=== PATIENT | male | born 1995 | race Caucasian/White ===

== ENCOUNTER 2022-06-05 07:26 | Emergency (ER) | payer SELFPAY ==
[~2022-06-05] VITALS: Ht 170.2 cm; Wt 65.9 kg
[~2022-06-05 07:26] MED LIST: NOCURR
[2022-06-05 07:30] VITALS: BP 142/85
== END 2022-06-05 07:39 | disposition left against medical advice (07) ==
LOC: EMS 07:26
DX: H92.02 Otalgia, left ear (principal); Z53.21 Procedure and treatment not carried out due to patient leaving prior to being seen by health care provider

== ENCOUNTER 2022-06-07 09:11 | Emergency (ER) | payer MEDICAID ==
[~2022-06-07] VITALS: Ht 170.2 cm; Wt 72.7 kg
[2022-06-07] MEDS ORDERED: ACETAMINOPHEN 500 MG TABLET PO ONE (10:30)
[2022-06-07 11:45] VITALS: BP 145/86
== END 2022-06-07 12:30 | disposition home or self-care (01) ==
LOC: EMS 09:14
DX: S43.101A Unspecified dislocation of right acromioclavicular joint, initial encounter (principal); F15.90 Other stimulant use, unspecified, uncomplicated; F12.90 Cannabis use, unspecified, uncomplicated; Z72.89 Other problems related to lifestyle; Z88.6 Allergy status to analgesic agent; V18.0XXA Pedal cycle driver injured in noncollision transport accident in nontraffic accident, initial encounter; Y93.55 Activity, bike riding; Y92.488 Other paved roadways as the place of occurrence of the external cause; Y99.8 Other external cause status
CPT/HCPCS: 99283

== ENCOUNTER 2023-09-27 15:04 | Emergency (ER) | payer MEDICAID | END 2023-09-27 15:25 | disposition left against medical advice (07) | LOC: EMS 15:09 | DX: Z53.21 Procedure and treatment not carried out due to patient leaving prior to being seen by health care provider (principal) ==

== ENCOUNTER 2023-09-28 01:41 | Emergency (ER) | payer MEDICAID ==
[~2023-09-28] VITALS: Ht 170.2 cm; Wt 95.9 kg
[2023-09-28 01:48] VITALS: BP 114/88; PULSE 129; RESP 20; TEMP 98.9
[2023-09-28] MEDS ORDERED: HALOPERIDOL LACTATE 5 MG/ML VIAL IM ONE (02:15)
[2023-09-28] MEDS ORDERED: LORazepam 2 MG/ML VIAL IM ONE (02:15)
== END 2023-09-28 03:55 | disposition left against medical advice (07) ==
LOC: EMS 01:41
DX: F41.9 Anxiety disorder, unspecified (principal); F15.10 Other stimulant abuse, uncomplicated; F20.9 Schizophrenia, unspecified; F17.210 Nicotine dependence, cigarettes, uncomplicated; F12.90 Cannabis use, unspecified, uncomplicated; Z88.6 Allergy status to analgesic agent
CPT/HCPCS: 99283; 93005; J1630; J2060

== ENCOUNTER 2023-09-30 20:48 | Emergency (ER) | payer MEDICAID | END 2023-09-30 20:55 | disposition home or self-care (01) | LOC: EMS 20:48 | DX: Z53.21 Procedure and treatment not carried out due to patient leaving prior to being seen by health care provider (principal) ==

== ENCOUNTER 2023-12-22 08:29 | Emergency (ER) | payer MEDICAID ==
[~2023-12-22] VITALS: Ht 172.7 cm; Wt 77.3 kg
[2023-12-22 08:35] VITALS: TEMP 99.3
[2023-12-22 08:49] LABS: BASOPHILS % (AUTO) 1.1 % (0.0-2.0); EOSINOPHILS % (AUTO) 1.1 % (1.0-6.0); HEMATOCRIT 45.3 % (41-53); HEMOGLOBIN 15.2 g/dL (13.5-17.5); LYMPHOCYTES # (AUTO) 2.1 K/uL (1.0-4.8); MEAN CORPUSCULAR HEMOGLOBIN 30.7 pg (26.0-34.0); MEAN CORPUSCULAR HGB CONC 33.6 G/dL (31.0-37.0); MEAN CORPUSCULAR VOLUME 91 fL (80-100); MONOCYTES # (AUTO) 0.4 K/uL (0.1-1.0); NEUTROPHILS # (AUTO) 4.5 K/uL (1.8-7.7); NEUTROPHILS % (AUTO) 62.8 % (40.0-70.0); PLATELET COUNT (AUTO) 265 K/uL (150-450); RED BLOOD CELL COUNT(AUTO) 4.96 MIL/uL (4.50-5.90); RED CELL DISTRIBUTION WIDTH 15.2 % (11.5-14.5); WHITE BLOOD COUNT (AUTO) 7.1 K/uL (4.5-11.0)
[2023-12-22 09:04] LABS: ANION GAP 9 mmol/L (8-16); CALCIUM, TOTAL 9.3 mg/dL (8.8-10.5); CARBON DIOXIDE 25 mmol/L (22-29); CHLORIDE 102 mmol/L (98-107); CREATININE 0.88 mg/dL (0.60-1.30); GLOMERULAR FILTR. RATE CALC > 60 mL/min (>60); GLUCOSE,RANDOM 111 mg/dL (70-110); SODIUM SERUM 136 mmol/L (136-145); UREA NITROGEN, BLOOD 18 mg/dL (7-18)
[2023-12-22 09:06] LABS: ALCOHOL, BLOOD (SERUM) < 3 mg/dL (0-10)
[2023-12-22 09:10] LABS: ALANINE AMINOTRANSFERASE 55 U/L (12-78); ALBUMIN 3.8 g/dL (3.4-5.0); ALKALINE PHOSPHATASE 57 U/L (46-116); ASPARTATE AMINOTRANSFERASE 28 U/L (15-37); BILIRUBIN,TOTAL 0.6 mg/dL (0.1-1.0); TOTAL PROTEIN, SERUM 7.7 g/dL (6.4-8.2)
[2023-12-22 09:12] LABS: COVID AG,FIA SOURCE NASAL SWAB
[2023-12-22 09:36] LABS: SARS-COV2 (COVID) ANTIGEN,FIA Negative (Negative)
[2023-12-22 10:50] LABS: ALCOHOL, URINE DRUG SCREEN NEGATIVE (NEGATIVE); AMPHET/METH SCREEN,URINE NEGATIVE (NEGATIVE); BARBITURATE SCREEN, URINE NEGATIVE (NEGATIVE); BENZODIAZEPINES SCREEN,URINE NEGATIVE (NEGATIVE); CANNABINOID SCREEN,URINE NEGATIVE (NEGATIVE); COCAINE SCREEN,URINE NEGATIVE (NEGATIVE); METHADONE SCREEN, URINE NEGATIVE (NEGATIVE); OPIATE SCREEN,URINE NEGATIVE (NEGATIVE); PHENCYCLIDINE SCREEN,URINE NEGATIVE (NEGATIVE)
[2023-12-22] MEDS: HALOPERIDOL 5 MG TABLET PO ONE (11:49)
[2023-12-22] MEDS: BENZTROPINE MESYLATE 2 MG TABLET PO ONE (11:49)
[2023-12-22] MEDS ORDERED: HALO5TAB23 PO (13:27)
[2023-12-22] MEDS ORDERED: BENZ1TAB84 PO (13:27)
[2023-12-22 13:30] VITALS: BP 113/72; PULSE 81; RESP 18
== END 2023-12-22 13:57 | disposition home or self-care (01) ==
LOC: EMS 08:29
DX: F20.0 Paranoid schizophrenia (principal); F41.9 Anxiety disorder, unspecified; F17.210 Nicotine dependence, cigarettes, uncomplicated; F12.90 Cannabis use, unspecified, uncomplicated; F15.90 Other stimulant use, unspecified, uncomplicated; Z88.8 Allergy status to other drugs, medicaments and biological substances; Z20.822 Contact with and (suspected) exposure to COVID-19
CPT/HCPCS: 99283; 87426; 80053; 85025; 36415; 80307; G0480

== ENCOUNTER 2023-12-22 16:36 | Emergency (ER) | payer MEDICAID ==
[~2023-12-22] VITALS: Ht 170.2 cm; Wt 72.7 kg
[~2023-12-22 16:36] MED LIST changes: +BENZ1TAB84 PO; +HALO5TAB23 PO; -NOCURR
[2023-12-22 16:41] VITALS: BP 111/67; PULSE 127; RESP 18; TEMP 98.6
== END 2023-12-22 19:00 | disposition left against medical advice (07) ==
LOC: EMS 16:53
DX: R07.9 Chest pain, unspecified (principal); F41.9 Anxiety disorder, unspecified; Z53.21 Procedure and treatment not carried out due to patient leaving prior to being seen by health care provider
CPT/HCPCS: 99281; Z7502

== ENCOUNTER 2024-01-24 12:35 | Inpatient (IN) | payer MEDICAID ==
[~2024-01-24] VITALS: Ht 167.6 cm; Wt 82.6 kg
[2024-01-24] MEDS: HALOPERIDOL 5 MG TABLET PO PRN (13:44)
[2024-01-24] MEDS: LORazepam 2 MG TABLET PO PRN (13:44)
[2024-01-24] MEDS ORDERED: ZOLPIDEM TARTRATE 10 MG TABLET PO PRN (13:45)
[2024-01-24 14:39] LABS: BASOPHILS % (AUTO) 0.5 % (0.0-2.0); EOSINOPHILS % (AUTO) 0.4 % (1.0-6.0); HEMATOCRIT 42.3 % (41-53); HEMOGLOBIN 14.6 g/dL (13.5-17.5); LYMPHOCYTES % (AUTO) 12.1 % (22.0-44.0); MEAN CORPUSCULAR HEMOGLOBIN 31.1 pg (26.0-34.0); MEAN CORPUSCULAR HGB CONC 34.6 G/dL (31.0-37.0); MEAN CORPUSCULAR VOLUME 90 fL (80-100); MONOCYTES # (AUTO) 0.3 K/uL (0.1-1.0); MONOCYTES % (AUTO) 3.8 % (2.0-9.0); NEUTROPHILS # (AUTO) 6.8 K/uL (1.8-7.7); NEUTROPHILS % (AUTO) 83.2 % (40.0-70.0); PLATELET COUNT (AUTO) 297 K/uL (150-450); RED CELL DISTRIBUTION WIDTH 13.8 % (11.5-14.5); WHITE BLOOD COUNT (AUTO) 8.2 K/uL (4.5-11.0)
[2024-01-24 14:47] LABS: ANION GAP 10 mmol/L (8-16); CALCIUM, TOTAL 8.8 mg/dL (8.8-10.5); CARBON DIOXIDE 28 mmol/L (22-29); CHLORIDE 100 mmol/L (98-107); CREATININE 0.94 mg/dL (0.60-1.30); GLOMERULAR FILTR. RATE CALC > 60 mL/min (>60); GLUCOSE,RANDOM 119 mg/dL (70-110); POTASSIUM 3.7 mmol/L (3.5-5.1); SODIUM SERUM 138 mmol/L (136-145); UREA NITROGEN, BLOOD 12 mg/dL (7-18)
[2024-01-24 14:52] LABS: ALCOHOL, BLOOD (SERUM) < 3 mg/dL (0-10)
[2024-01-24 14:53] LABS: ALANINE AMINOTRANSFERASE 25 U/L (12-78); ALBUMIN 3.6 g/dL (3.4-5.0); ALKALINE PHOSPHATASE 68 U/L (46-116); ASPARTATE AMINOTRANSFERASE 18 U/L (15-37); BILIRUBIN,TOTAL 0.7 mg/dL (0.1-1.0); TOTAL PROTEIN, SERUM 7.9 g/dL (6.4-8.2)
[2024-01-24 16:39] LABS: COVID AG,FIA SOURCE NASAL SWAB
[2024-01-24 17:06] LABS: SARS-COV2 (COVID) ANTIGEN,FIA Negative (Negative)
[2024-01-24 21:07] VITALS: BP 130/55; PULSE 98; RESP 18; TEMP 98.2; O2SAT 99
[2024-01-25] MEDS ORDERED: CloNIDine HCL 0.1 MG TABLET PO PRN (06:00)
[2024-01-25] MEDS ORDERED: BACITRACIN 28 GM OINTMENT TP PRN (06:00)
[2024-01-25] MEDS ORDERED: BENZOCAINE/MENTHOL LOZENGE PO PRN (06:00)
[2024-01-25] MEDS ORDERED: LOPERAMIDE HCL 2 MG CAPSULE PO PRN (06:00)
[2024-01-25] MEDS ORDERED: DOCUSATE SODIUM 100 MG CAPSULE PO PRN (06:00)
[2024-01-25] MEDS ORDERED: ONDANSETRON HCL 4 MG TABLET PO PRN (06:00)
[2024-01-25] MEDS ORDERED: MAGNESIUM HYDROXIDE SUSPENSION 30 ML UDCUP PO PRN (06:00)
[2024-01-25] MEDS ORDERED: ALBUTEROL SULFATE HFA 90 MCG/PUFF 8 GM INHALER IH PRN (06:00)
[2024-01-25] MEDS ORDERED: MAG HYDROX/ALUMINUM HYD/SIMETH ES 30 ML SUSPENSION UDCUP PO PRN (06:00)
[2024-01-25] MEDS ORDERED: OMEPRAZOLE 20 MG CAPSULE PO PRN (06:00)
[2024-01-25] MEDS ORDERED: PETROLATUM,WHITE 28 GM JELLY TP PRN (06:00)
[2024-01-25] MEDS ORDERED: ACETAMINOPHEN 325 MG TABLET PO PRN (06:00)
[2024-01-25 08:52] VITALS: BP 146/74; PULSE 62; RESP 18; TEMP 98; O2SAT 97
[2024-01-25 20:21] VITALS: BP 113/74; PULSE 99; RESP 17; TEMP 96.8; O2SAT 100
[2024-01-25] MEDS: HALOPERIDOL 10 MG TABLET PO SCH (21:17)
[2024-01-25] MEDS: BENZTROPINE MESYLATE 2 MG TABLET PO SCH (21:18)
[2024-01-26 08:28] VITALS: BP 115/68; PULSE 98; RESP 17; TEMP 97.6; O2SAT 98
[2024-01-26] MEDS: OLANZapine 7.5 MG TABLET PO SCH (20:15)
[2024-01-26 20:38] VITALS: BP 119/80; PULSE 87; TEMP 98; O2SAT 97
[2024-01-26] MEDS ORDERED: GuaiFENesin [SUGAR-FREE] 200 MG/10 ML SOLUTION UDCUP PO PRN (22:15)
[2024-01-27 08:36] VITALS: BP 124/76; PULSE 86; RESP 18; TEMP 98.7; O2SAT 100
[2024-01-27 21:11] VITALS: BP 117/75; PULSE 75; TEMP 97.9; O2SAT 98
[2024-01-28 08:18] VITALS: BP 128/75; PULSE 100; RESP 17; TEMP 97.6; O2SAT 97
[2024-01-28 20:28] VITALS: BP 119/77; PULSE 96; RESP 17; TEMP 97.5; O2SAT 96
[2024-01-29 08:28] VITALS: BP 121/76; PULSE 64; RESP 18; TEMP 98.6; O2SAT 97
[2024-01-29] MEDS ORDERED: OLANZapine 10 MG TABLET PO SCH (21:00)
[2024-01-29 21:18] VITALS: BP 110/64; PULSE 76; RESP 18; TEMP 98.4; O2SAT 98
[2024-01-29] MEDS: OLANZapine 10 MG TABLET PO SCH (21:37)
[2024-01-30 09:19] VITALS: BP 120/60; PULSE 90; RESP 17; TEMP 97.9; O2SAT 100
[2024-01-30 20:17] VITALS: BP 134/78; PULSE 91; RESP 18; TEMP 98.7; O2SAT 97
[2024-01-31 08:58] VITALS: BP 120/65; PULSE 70; RESP 17; TEMP 97.7; O2SAT 100
[2024-01-31 22:00] VITALS: BP 121/73; PULSE 87; RESP 18; TEMP 98.6; O2SAT 97
[2024-02-01 08:46] VITALS: BP 117/78; PULSE 74; RESP 17; TEMP 97.7; O2SAT 98
[2024-02-01 21:21] VITALS: BP 120/79; PULSE 91; RESP 17; TEMP 97.9; O2SAT 98
[2024-02-01] MEDS: OLANZapine 10 MG TABLET PO SCH (21:48)
[2024-02-02 08:58] VITALS: BP 130/70; PULSE 90; RESP 16; TEMP 97.9; O2SAT 100
[2024-02-02 20:24] VITALS: BP 118/68; PULSE 86; RESP 20; TEMP 98.1; O2SAT 97
[2024-02-03 09:57] VITALS: BP 128/82; PULSE 99; RESP 18; TEMP 97.7; O2SAT 98
[2024-02-03 21:57] VITALS: BP 141/90; PULSE 104; RESP 18; TEMP 98; O2SAT 94
[2024-02-04 09:08] VITALS: BP 119/67; PULSE 97; RESP 17; TEMP 98; O2SAT 98
[2024-02-04 20:18] VITALS: BP 131/81; PULSE 80; RESP 17; TEMP 97.6; O2SAT 97
[2024-02-05 08:22] VITALS: BP 116/63; PULSE 78; RESP 18; TEMP 97.8; O2SAT 97
[2024-02-05] MEDS ORDERED: OLAN10TA74 PO (11:19)
== END 2024-02-05 11:45 | disposition home or self-care (01) | DRG 750 ==
LOC: EMS 12:35 → B3A 17:42 → B2S 01-30 20:44
PROVIDERS: ADMIT Psychiatry & Neurology Psychiatry; ATTEND Psychiatry & Neurology Psychiatry
DX: F25.9 Schizoaffective disorder, unspecified (principal); R45.851 Suicidal ideations; Z91.148 Patient's other noncompliance with medication regimen for other reason; F41.9 Anxiety disorder, unspecified; G47.00 Insomnia, unspecified; Z20.822 Contact with and (suspected) exposure to COVID-19; F15.90 Other stimulant use, unspecified, uncomplicated; F10.90 Alcohol use, unspecified, uncomplicated; K59.00 Constipation, unspecified; K21.9 Gastro-esophageal reflux disease without esophagitis; Z88.6 Allergy status to analgesic agent; Z79.899 Other long term (current) drug therapy; Z87.891 Personal history of nicotine dependence
CPT/HCPCS: 80053; 85025; G0480

== ENCOUNTER 2024-02-05 18:57 | Emergency (ER) | payer MEDICAID ==
[~2024-02-05] VITALS: Ht 175.3 cm; Wt 81.0 kg
[~2024-02-05 18:57] MED LIST changes: +OLAN10TA74 PO
[2024-02-05] MEDS: LORazepam 2 MG TABLET PO ONE (20:32)
[2024-02-05] MEDS: OLANZapine 10 MG TABLET PO ONE (20:33)
[2024-02-05 21:18] VITALS: BP 141/77; PULSE 90; RESP 19; TEMP 97.6
== END 2024-02-05 21:28 | disposition home or self-care (01) ==
LOC: EMS 18:59
DX: F41.9 Anxiety disorder, unspecified (principal); F20.9 Schizophrenia, unspecified; F17.210 Nicotine dependence, cigarettes, uncomplicated; F12.90 Cannabis use, unspecified, uncomplicated; F15.90 Other stimulant use, unspecified, uncomplicated; Z88.6 Allergy status to analgesic agent
CPT/HCPCS: 99283

== ENCOUNTER 2024-04-05 23:47 | Emergency (ER) | payer MEDICAID, OTHER ==
[~2024-04-05] VITALS: Ht 170.2 cm; Wt 72.7 kg
[~2024-04-05 23:47] MED LIST changes: -BENZ1TAB84 PO; -HALO5TAB23 PO
[2024-04-05 23:53] VITALS: TEMP 98.4
[2024-04-06] MEDS: OLANZapine 10 MG TABLET PO ONE (00:19)
[2024-04-06] MEDS: LORazepam 1 MG TABLET PO ONE (00:19)
[2024-04-06 00:21] LABS: BASOPHILS % (AUTO) 0.6 % (0.0-2.0); EOSINOPHILS % (AUTO) 0.1 % (1.0-6.0); HEMOGLOBIN 14.9 g/dL (13.5-17.5); LYMPHOCYTES % (AUTO) 23.6 % (22.0-44.0); MEAN CORPUSCULAR HEMOGLOBIN 30.8 pg (26.0-34.0); MEAN CORPUSCULAR VOLUME 91 fL (80-100); MONOCYTES # (AUTO) 0.5 K/uL (0.1-1.0); MONOCYTES % (AUTO) 5.8 % (2.0-9.0); NEUTROPHILS # (AUTO) 6.1 K/uL (1.8-7.7); NEUTROPHILS % (AUTO) 69.9 % (40.0-70.0); PLATELET COUNT (AUTO) 327 K/uL (150-450); RED BLOOD CELL COUNT(AUTO) 4.85 MIL/uL (4.50-5.90); RED CELL DISTRIBUTION WIDTH 14.2 % (11.5-14.5); WHITE BLOOD COUNT (AUTO) 8.7 K/uL (4.5-11.0)
[2024-04-06 00:29] LABS: ANION GAP 10 mmol/L (8-16); CALCIUM, TOTAL 9.9 mg/dL (8.8-10.5); CARBON DIOXIDE 28 mmol/L (22-29); CHLORIDE 103 mmol/L (98-107); CREATININE 1.14 mg/dL (0.60-1.30); GLOMERULAR FILTR. RATE CALC > 60 mL/min (>60); GLUCOSE,RANDOM 105 mg/dL (70-110); POTASSIUM 3.9 mmol/L (3.5-5.1); SODIUM SERUM 141 mmol/L (136-145); UREA NITROGEN, BLOOD 16 mg/dL (7-18)
[2024-04-06 00:34] LABS: ALANINE AMINOTRANSFERASE 32 U/L (12-78); ALBUMIN 4.2 g/dL (3.4-5.0); ALKALINE PHOSPHATASE 66 U/L (46-116); ASPARTATE AMINOTRANSFERASE 17 U/L (15-37); BILIRUBIN,TOTAL 0.8 mg/dL (0.1-1.0); TOTAL PROTEIN, SERUM 8.2 g/dL (6.4-8.2)
[2024-04-06 00:35] LABS: TROPONIN I-HIGH SENSITIVITY Less Than 4 ng/L (<76)
[2024-04-06 01:59] LABS: PH,URINE DRUG SCREEN 6.5 (5.0-8.0)
[2024-04-06 02:02] LABS: ALCOHOL, URINE DRUG SCREEN NEGATIVE (NEGATIVE); AMPHET/METH SCREEN,URINE POSITIVE (NEGATIVE); BARBITURATE SCREEN, URINE NEGATIVE (NEGATIVE); BENZODIAZEPINES SCREEN,URINE NEGATIVE (NEGATIVE); CANNABINOID SCREEN,URINE NEGATIVE (NEGATIVE); COCAINE SCREEN,URINE NEGATIVE (NEGATIVE); METHADONE SCREEN, URINE NEGATIVE (NEGATIVE); OPIATE SCREEN,URINE NEGATIVE (NEGATIVE); PHENCYCLIDINE SCREEN,URINE NEGATIVE (NEGATIVE)
[2024-04-06 03:22] VITALS: BP 128/79; PULSE 88; RESP 20
== END 2024-04-06 03:40 | disposition home or self-care (01) ==
LOC: EMS 23:47
DX: F15.10 Other stimulant abuse, uncomplicated (principal); F41.9 Anxiety disorder, unspecified; F20.9 Schizophrenia, unspecified; F17.210 Nicotine dependence, cigarettes, uncomplicated
CPT/HCPCS: 99285; 71045; 80053; 84484; 85025; 36415; 93005; 80307; G0480

== ENCOUNTER 2024-04-07 08:16 | Emergency (ER) | payer OTHER ==
[~2024-04-07] VITALS: Ht 172.7 cm; Wt 79.5 kg
[2024-04-07 08:24] VITALS: BP 124/67; PULSE 100; RESP 18; TEMP 98.7
[2024-04-07 09:04] LABS: BASOPHILS % (AUTO) 0.7 % (0.0-2.0); EOSINOPHILS % (AUTO) 0.2 % (1.0-6.0); HEMATOCRIT 44.9 % (41-53); LYMPHOCYTES # (AUTO) 1.8 K/uL (1.0-4.8); LYMPHOCYTES % (AUTO) 24.3 % (22.0-44.0); MEAN CORPUSCULAR HEMOGLOBIN 30.7 pg (26.0-34.0); MEAN CORPUSCULAR HGB CONC 33.5 G/dL (31.0-37.0); MEAN CORPUSCULAR VOLUME 92 fL (80-100); MONOCYTES # (AUTO) 0.3 K/uL (0.1-1.0); MONOCYTES % (AUTO) 4.3 % (2.0-9.0); NEUTROPHILS # (AUTO) 5.3 K/uL (1.8-7.7); NEUTROPHILS % (AUTO) 70.5 % (40.0-70.0); PLATELET COUNT (AUTO) 293 K/uL (150-450); RED BLOOD CELL COUNT(AUTO) 4.91 MIL/uL (4.50-5.90); RED CELL DISTRIBUTION WIDTH 14.4 % (11.5-14.5); WHITE BLOOD COUNT (AUTO) 7.6 K/uL (4.5-11.0)
[2024-04-07] MEDS: OLANZapine 5 MG TABLET PO ONE (09:08)
[2024-04-07 09:13] LABS: ALCOHOL, BLOOD (SERUM) < 3 mg/dL (0-10)
[2024-04-07 09:17] LABS: ANION GAP 10 mmol/L (8-16); CALCIUM, TOTAL 9.5 mg/dL (8.8-10.5); CARBON DIOXIDE 25 mmol/L (22-29); CHLORIDE 101 mmol/L (98-107); CREATININE 1.13 mg/dL (0.60-1.30); GLOMERULAR FILTR. RATE CALC > 60 mL/min (>60); GLUCOSE,RANDOM 132 mg/dL (70-110); POTASSIUM 4.7 mmol/L (3.5-5.1); SODIUM SERUM 136 mmol/L (136-145); UREA NITROGEN, BLOOD 15 mg/dL (7-18)
== END 2024-04-07 10:02 | disposition home or self-care (01) ==
LOC: EMS 08:16
DX: F20.9 Schizophrenia, unspecified (principal); F41.9 Anxiety disorder, unspecified; F17.210 Nicotine dependence, cigarettes, uncomplicated; F12.90 Cannabis use, unspecified, uncomplicated; F15.10 Other stimulant abuse, uncomplicated; Z88.6 Allergy status to analgesic agent
CPT/HCPCS: 99284; 80048; 85025; 36415; G0480

== ENCOUNTER 2024-05-30 08:58 | Inpatient (IN) | payer MEDICAID, OTHER ==
[~2024-05-30] VITALS: Ht 170.2 cm; Wt 82.6 kg
[2024-05-30 09:47] LABS: COVID AG,FIA SOURCE NASAL SWAB
[2024-05-30 09:59] LABS: BASOPHILS % (AUTO) 0.7 % (0.0-2.0); EOSINOPHILS % (AUTO) 0 % (1.0-6.0); HEMOGLOBIN 15.1 g/dL (13.5-17.5); LYMPHOCYTES # (AUTO) 1.9 K/uL (1.0-4.8); LYMPHOCYTES % (AUTO) 32.6 % (22.0-44.0); MEAN CORPUSCULAR HEMOGLOBIN 30.7 pg (26.0-34.0); MEAN CORPUSCULAR HGB CONC 33.7 G/dL (31.0-37.0); MEAN CORPUSCULAR VOLUME 91 fL (80-100); MONOCYTES # (AUTO) 0.3 K/uL (0.1-1.0); MONOCYTES % (AUTO) 5.3 % (2.0-9.0); NEUTROPHILS # (AUTO) 3.6 K/uL (1.8-7.7); NEUTROPHILS % (AUTO) 61.4 % (40.0-70.0); PLATELET COUNT (AUTO) 269 K/uL (150-450); RED BLOOD CELL COUNT(AUTO) 4.94 MIL/uL (4.50-5.90); RED CELL DISTRIBUTION WIDTH 13.9 % (11.5-14.5); WHITE BLOOD COUNT (AUTO) 5.8 K/uL (4.5-11.0)
[2024-05-30 10:03] LABS: ANION GAP 12 mmol/L (8-16); CALCIUM, TOTAL 9.1 mg/dL (8.8-10.5); CARBON DIOXIDE 24 mmol/L (22-29); CHLORIDE 99 mmol/L (98-107); CREATININE 1.17 mg/dL (0.60-1.30); GLOMERULAR FILTR. RATE CALC > 60 mL/min (>60); GLUCOSE,RANDOM 105 mg/dL (70-110); POTASSIUM 4.4 mmol/L (3.5-5.1); SODIUM SERUM 135 mmol/L (136-145); UREA NITROGEN, BLOOD 14 mg/dL (7-18)
[2024-05-30 10:09] LABS: ALCOHOL, BLOOD (SERUM) < 3 mg/dL (0-10)
[2024-05-30 10:10] LABS: ALANINE AMINOTRANSFERASE 38 U/L (12-78); ALBUMIN 3.9 g/dL (3.4-5.0); ALKALINE PHOSPHATASE 61 U/L (46-116); ASPARTATE AMINOTRANSFERASE 18 U/L (15-37); BILIRUBIN,TOTAL 0.9 mg/dL (0.1-1.0); TOTAL PROTEIN, SERUM 7.9 g/dL (6.4-8.2)
[2024-05-30 10:14] LABS: SARS-COV2 (COVID) ANTIGEN,FIA Negative (Negative)
[2024-05-30] MEDS: LORazepam 1 MG TABLET PO ONE (13:03)
[2024-05-30] MEDS: HALOPERIDOL 5 MG TABLET PO ONE (13:03)
[2024-05-30 15:30] VITALS: O2SAT 98
[2024-05-30 17:00] VITALS: BP 118/67; PULSE 78; RESP 18; TEMP 98; O2SAT 98
[2024-05-30] MEDS ORDERED: ACETAMINOPHEN 325 MG TABLET PO PRN (17:30)
[2024-05-30] MEDS ORDERED: HydrOXYzine PAMOATE 50 MG CAPSULE PO PRN (17:30)
[2024-05-30] MEDS ORDERED: GuaiFENesin/D-METHORPHAN [SUGAR-FREE] 200-20MG/10 ML SYRUP UDCUP PO PRN (17:30)
[2024-05-30] MEDS ORDERED: MAG HYDROX/ALUMINUM HYD/SIMETH ES 30 ML SUSPENSION UDCUP PO PRN (17:30)
[2024-05-30] MEDS ORDERED: MAGNESIUM HYDROXIDE SUSPENSION 30 ML UDCUP PO PRN (17:30)
[2024-05-30] MEDS ORDERED: TUBERCULIN, PURIFIED PROTEIN DERIVATIVE 5 TU/0.1 ML SYRINGE ID ONE (17:30)
[2024-05-30] MEDS ORDERED: PROMETHAZINE HCL 25 MG TABLET PO PRN (17:30)
[2024-05-30] MEDS ORDERED: LOPERAMIDE HCL 2 MG CAPSULE PO PRN (17:30)
[2024-05-30 20:20] VITALS: BP 116/70; PULSE 78; RESP 18; TEMP 98.1; O2SAT 98
[2024-05-30] MEDS: OLANZapine 5 MG RAPDIS TABLET PO SCH (21:05)
[2024-05-30] MEDS: MELATONIN 5 MG TABLET PO SCH (21:05)
[2024-05-31 08:02] LABS: HEMOGLOBIN A1C 5.5 % (3.8-5.6)
[2024-05-31 08:12] LABS: CHOL/HDL RATIO 3.4 (4.2-7.3); FREE T4 (FREE THYROXINE) 1.06 ng/dL (0.76-1.46); THYROID STIMULATING HORMONE 0.39 uIU/mL (0.36-3.74)
[2024-05-31 10:04] VITALS: BP 121/64; PULSE 92; RESP 18; TEMP 98.1; O2SAT 100
[2024-05-31] MEDS: NALTREXONE HCL 50 MG TABLET PO SCH (11:23)
[2024-05-31] MEDS: MULTIVITAMINS WITH MINERALS, THERAPEUTIC TABLET PO SCH (11:24)
[2024-05-31] MEDS: FOLIC ACID 1 MG TABLET PO SCH (11:24)
[2024-05-31] MEDS: THIAMINE 100 MG TABLET PO SCH (11:24)
[2024-05-31] MEDS: BuPROPion HCL XL 150 MG ER TABLET PO SCH (11:24)
[2024-05-31] MEDS: OMEGA-3/DHA/EPA/FISH OIL 1,000 MG CAPSULE PO SCH (11:24)
[2024-05-31] MEDS: PALIPERIDONE PALMITATE 234 MG/1.5 ML SYRINGE IM ONE (11:30)
[2024-05-31 21:14] VITALS: BP 119/73; PULSE 70; RESP 18; TEMP 98.1; O2SAT 97
[2024-06-01 09:47] VITALS: BP 127/90; PULSE 98; RESP 18; TEMP 97.8; O2SAT 96
[2024-06-01] MEDS: OLANZapine 10 MG RAPDIS TABLET PO SCH (20:52)
[2024-06-01 21:23] VITALS: BP 134/75; PULSE 88; RESP 18; TEMP 97.2; O2SAT 97
[2024-06-02] MEDS: BuPROPion HCL XL 150 MG ER TABLET PO SCH (09:02)
[2024-06-02 13:21] VITALS: BP 126/60; PULSE 98; RESP 18; TEMP 98.4
[2024-06-02 21:40] VITALS: BP 130/68; PULSE 91; RESP 18; TEMP 98; O2SAT 98
[2024-06-03] MEDS: PALIPERIDONE PALMITATE 156 MG/ML SYRINGE IM ONE (09:46)
[2024-06-03 10:54] VITALS: BP 130/70; PULSE 83; RESP 17; TEMP 97.9; O2SAT 98
[2024-06-03 22:15] VITALS: BP 105/63; PULSE 99; RESP 18; TEMP 98; O2SAT 97
[2024-06-04 08:30] VITALS: BP 130/67; PULSE 91; RESP 16; TEMP 98; O2SAT 99
[2024-06-04 21:36] VITALS: BP 135/73; PULSE 98; RESP 16; TEMP 98.9; O2SAT 100
[2024-06-05 09:48] VITALS: BP 127/64; PULSE 93; RESP 17; TEMP 97.8; O2SAT 98
[2024-06-05 21:39] VITALS: BP 127/71; PULSE 85; RESP 17; TEMP 98.5; O2SAT 98
[2024-06-06 10:24] VITALS: BP 113/69; PULSE 90; RESP 18; TEMP 98.6; O2SAT 98
[2024-06-06 18:42] LABS: APPEARANCE,URINE CLEAR (CLEAR); BILIRUBIN,URINE NEGATIVE (NEGATIVE); COLOR,URINE LIGHT YELLOW (YELLOW); GLUCOSE, URINE (UA) NEGATIVE (NEGATIVE); KETONES,URINE NEGATIVE (NEGATIVE); LEUKOCYTE ESTERASE ,URINE NEGATIVE (NEGATIVE); NITRATE,URINE NEGATIVE (NEGATIVE); OCCULT BLOOD,URINE NEGATIVE (NEGATIVE); PROTEIN,URINE NEGATIVE (NEGATIVE); SPECIFIC GRAVITIY, URINE 1.008 (1.003-1.030); UROBILINOGEN,URINE <=1.0 mg/dL (<=1.0)
[2024-06-06 18:50] LABS: ALCOHOL, URINE DRUG SCREEN NEGATIVE (NEGATIVE); AMPHET/METH SCREEN,URINE NEGATIVE (NEGATIVE); BENZODIAZEPINES SCREEN,URINE NEGATIVE (NEGATIVE); CANNABINOID SCREEN,URINE NEGATIVE (NEGATIVE); COCAINE SCREEN,URINE NEGATIVE (NEGATIVE); METHADONE SCREEN, URINE NEGATIVE (NEGATIVE); OPIATE SCREEN,URINE NEGATIVE (NEGATIVE); PHENCYCLIDINE SCREEN,URINE NEGATIVE (NEGATIVE)
[2024-06-06 19:03] LABS: BARBITURATE SCREEN, URINE NEGATIVE (NEGATIVE)
[2024-06-06 21:26] VITALS: BP 128/75; PULSE 90; RESP 18; TEMP 97.8; O2SAT 100
[2024-06-07 12:54] VITALS: BP 135/77; PULSE 81; RESP 19; TEMP 98.3; O2SAT 100
[2024-06-07 21:22] VITALS: BP 117/71; PULSE 98; RESP 16; TEMP 98.2; O2SAT 98
[2024-06-08 08:00] VITALS: BP 116/69; PULSE 100; RESP 18; TEMP 98; O2SAT 97
[2024-06-08] MEDS: LORazepam 2 MG TABLET PO PRN (21:38)
[2024-06-08 21:45] VITALS: BP 124/70; PULSE 83; RESP 18; TEMP 98.3; O2SAT 97
[2024-06-08] MEDS: ZOLPIDEM TARTRATE 10 MG TABLET PO PRN (22:57)
[2024-06-09] MEDS: OLANZapine 5 MG RAPDIS TABLET PO PRN (00:30)
[2024-06-09 08:00] VITALS: BP 119/59; PULSE 86; RESP 18; TEMP 97.6; O2SAT 97
[2024-06-09] MEDS ORDERED: OLAN10TA74 PO (10:48)
[2024-06-09] MEDS ORDERED: BUPR-514 PO (10:51)
[2024-06-09] MEDS ORDERED: NALT50TA33 PO (10:52)
[2024-06-09] MEDS ORDERED: THIA100T80 PO (13:01)
[2024-06-09] MEDS ORDERED: OLAN10TA26 PO (13:01)
[2024-06-09] MEDS ORDERED: OMEG-135 PO (13:01)
[2024-06-09] MEDS ORDERED: MELA5TAB40 PO (13:01)
== END 2024-06-09 15:45 | disposition home or self-care (01) | DRG 750 ==
LOC: EMS 08:58 → 3EI 16:27
PROVIDERS: ADMIT Psychiatry & Neurology Psychiatry; ATTEND Psychiatry & Neurology Psychiatry
PROC: GZHZZZZ Group Psychotherapy (ICD-10-PCS; principal; 2024-05-30)
PROC: GZ51ZZZ Individual Psychotherapy, Behavioral (ICD-10-PCS; 2024-05-30)
PROC: GZ58ZZZ Individual Psychotherapy, Cognitive-Behavioral (ICD-10-PCS; 2024-05-30)
PROC: GZ56ZZZ Individual Psychotherapy, Supportive (ICD-10-PCS; 2024-05-31)
DX: F20.0 Paranoid schizophrenia (principal); R45.851 Suicidal ideations; Z91.148 Patient's other noncompliance with medication regimen for other reason; F17.200 Nicotine dependence, unspecified, uncomplicated; F41.9 Anxiety disorder, unspecified; F32.A Depression, unspecified; F19.10 Other psychoactive substance abuse, uncomplicated; F41.1 Generalized anxiety disorder; Z20.822 Contact with and (suspected) exposure to COVID-19; F15.10 Other stimulant abuse, uncomplicated; Z59.00 Homelessness unspecified; Z88.6 Allergy status to analgesic agent; Z91.010 Allergy to peanuts; Z91.199 Patient's noncompliance with other medical treatment and regimen due to unspecified reason; Z79.899 Other long term (current) drug therapy
CPT/HCPCS: 80048; 80061; 80076; 80307; 83036; 84439; 84443; 85025; 86592; 93005; 99285; G0480

== ENCOUNTER 2024-06-16 09:07 | Emergency (ER) | payer MEDICAID, OTHER ==
[~2024-06-16] VITALS: Ht 172.7 cm; Wt 72.7 kg
[~2024-06-16 09:07] MED LIST changes: +BUPR-514 PO; +MELA5TAB40 PO; +NALT50TA33 PO; +OLAN10TA26 PO; -OLAN10TA74 PO; +OMEG-135 PO; +THIA100T80 PO
[2024-06-16 09:09] VITALS: BP 127/80; PULSE 105; RESP 18; TEMP 99.1; O2SAT 99
[2024-06-16] MEDS ORDERED: OLAN20TA82 PO (09:12)
[2024-06-16] MEDS: ACETAMINOPHEN 500 MG TABLET PO ONE (09:38)
[2024-06-16 10:02] LABS: COVID AG,FIA SOURCE NASAL SWAB
[2024-06-16 10:28] LABS: SARS-COV2 (COVID) ANTIGEN,FIA Negative (Negative)
[2024-06-16 10:30] LABS: INFLUENZA TYPE A NEGATIVE FOR TYPE A (NEGATIVE); INFLUENZA TYPE B NEGATIVE FOR TYPE B (NEGATIVE)
== END 2024-06-16 10:46 | disposition home or self-care (01) ==
LOC: EMS 09:07
DX: J06.9 Acute upper respiratory infection, unspecified (principal); R06.00 Dyspnea, unspecified; M79.651 Pain in right thigh; F41.9 Anxiety disorder, unspecified; F32.A Depression, unspecified; F20.9 Schizophrenia, unspecified; F12.90 Cannabis use, unspecified, uncomplicated; F15.90 Other stimulant use, unspecified, uncomplicated; Z20.822 Contact with and (suspected) exposure to COVID-19
CPT/HCPCS: 71045; 87804; 99284